=== PATIENT | female | born 1965 | race Caucasian/White ===

== ENCOUNTER 2022-06-20 12:17 | Emergency (ER) | payer BC, OTHER ==
[2022-06-20 12:33] VITALS: BP 164/90; PULSE 76; RESP 18; TEMP 97.7
[2022-06-20] MEDS ORDERED: ORPHENADRINE 30 MG/ML 2 ML VIAL IM STA (12:46)
[2022-06-20] MEDS ORDERED: KETOROLAC 15 MG/ML 1 ML VIAL IM STA (12:46)
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
== END 2022-06-20 13:52 | disposition home or self-care (01) ==
LOC: EC 12:17
DX: S39.012A Strain of muscle, fascia and tendon of lower back, initial encounter (principal); S63.91XA Sprain of unspecified part of right wrist and hand, initial encounter; V89.2XXA Person injured in unspecified motor-vehicle accident, traffic, initial encounter
CPT/HCPCS: 73110; 73130; 99284; 96372; J2360

== ENCOUNTER → 2022-06-28 | Outpatient (CLI) | payer BC ==
--- NOTE | 2022-06-28 19:11 | MR ---
EXAMINATION TYPE: MR cervical spine wo con DATE OF EXAM: 06/28/2022 COMPARISON: None HISTORY: Loss of feeling in both arms (mostly right), feels like pins and needles for 6 months TECHNIQUE: Multiplanar, multisequence images of the cervical spine were acquired without contrast. C2-C3: No evidence for degenerative disc disease. No disc bulge/herniation or protrusion. Mild left- sided foraminal encroachment due to uncovertebral joint hypertrophy and facet arthropathy. C3-C4: No evidence for degenerative disc disease. No disc bulge/herniation or protrusion. Uncoverteb ral joint hypertrophy causes some mild bilateral foraminal encroachment. C4-C5: No evidence for degenerative disc disease. No disc bulge/herniation or protrusion. Uncoverteb ral joint hypertrophy and facet arthropathy result in some right-sided foraminal encroachment C5-C6: Posterior extension endplate disc complex causes mild anterior mass effect on the thecal sac. There is bilateral foraminal encroachment due to uncovertebral joint hypertrophy. C6-C7: Posterior broad-based disc bulge causes mild anterior mass effect on the thecal sac. There is some left-sided foraminal encroachment due to uncovertebral joint hypertrophy. C7-T1: No evidence for degenerative disc disease. No disc bulge/herniation or protrusion. No Canal stenosis. Foramina are patent bilaterally. Cervical segments are intact. There is normal alignment. Cervical spinal cord is of normal signal. Craniovertebral junction relationships are within normal limits. Cervical vertebral bodies show pre served height, bone marrow signal. Some minimal endplate discogenic marrow signal change present at C 5-6, there is associated loss of disc height and signal at C5-6 and C6-7 consistent with disc desicca tion and degenerative disc disease. No significant spinal stenosis. There may be a thoracic scoliosis . IMPRESSION: Degenerative disc disease, multilevel foraminal encroachment, suspect a spinal curvature.
== END | disposition home or self-care (01) ==
LOC: RADMRIMAIN 11:37 → EDUNIT# 11:45
PROVIDERS: ATTEND Orthopaedic Surgery Orthopaedic Surgery of the Spine
DX: M50.323 Other cervical disc degeneration at C6-C7 level (principal)
CPT/HCPCS: 72141

== ENCOUNTER → 2022-11-08 | Outpatient (CLI) | payer BC ==
--- NOTE | 2022-11-09 11:43 | MM ---
Reason for Exam: Screening (asymptomatic). Last mammogram was performed 1 year(s) and 3 month(s) ago. Patient History: Menarche at age 11. First Full-Term at age 32. Late child-bearing (after 30). Postmenopausal. Patient has history of breast feeding. Patient used Hormonal Contraceptives for 10 years. Risk Values: [place] 5 year model risk: 1.9%. NCI Lifetime model risk: 11.7%. Prior Study Comparison: 12/30/2019 Bilateral MG 3D screening mammo w/cad, [facility]. 07/28/2021 Bilateral MG 3D screening mammo w/cad, [facility]. Tissue Density: There are scattered fibroglandular densities. Findings: Analyzed By CAD. There are loosely grouped tiny benign-appearing round calcifications anteriorly in the left breast redemonstrated. There is no suspicious group of microcalcifications or new suspicious mass in either breast. Overall Assessment: Benign, BI-RAD 2 Management: Screening Mammogram of both breasts in 1 year. A clinical breast exam by your physician is recommended on an annual basis and results should be correlated with mammographic findings. Electronically signed and approved by: Con Putnam M.D.
== END | disposition home or self-care (01) ==
LOC: RADMAMWWP 08:36
PROVIDERS: ATTEND Family Medicine
DX: Z12.31 Encounter for screening mammogram for malignant neoplasm of breast (principal); Z78.0 Asymptomatic menopausal state
CPT/HCPCS: 77063; 77067

== ENCOUNTER → 2023-11-29 | Outpatient (CLI) | payer BC ==
--- NOTE | 2023-11-30 13:34 | MM ---
Reason for Exam: Screening (asymptomatic). Last mammogram was performed 1 year(s) and 1 month(s) ago. Patient History: Menarche at age 11. First Full-Term at age 32. Late child-bearing (after 30). Postmenopausal. Patient has history of breast feeding. Patient used Hormonal Contraceptives for 10 years. Risk Values: [place] 5 year model risk: 2.0%. NCI Lifetime model risk: 11.4%. Prior Study Comparison: 12/30/2019 Bilateral MG 3D screening mammo w/cad, [facility]. 07/28/2021 Bilateral MG 3D screening mammo w/cad, [facility]. 11/08/2022 Bilateral MG 3D screening mammo w/cad, [facility]. Tissue Density: There are scattered fibroglandular densities. Findings: Analyzed By CAD. There is no suspicious group of microcalcifications or new suspicious mass. Overall Assessment: Negative, BI-RAD 1 Management: Screening Mammogram of both breasts in [address] [facility] will attempt to contact patient to return for supplemental views and ultrasound if indicated. Patient should continue monthly self-breast exams. A clinical breast exam by your physician is recommended on an annual basis. This exam should not preclude additional follow-up of suspicious palpable abnormalities. Note on Georgiana scores and lifetime risk: 1. A Georgiana score greater than 3% is considered moderate risk. If this is the case, consider specialist referral to assess eligibility for a risk reducing agent. 2. If overall lifetime risk for the development of breast cancer is 20% or higher, the patient may qualify for future screening with alternating mammogram and breast MRI. Electronically signed and approved by: Dereck Farmer DO
== END | disposition home or self-care (01) ==
LOC: RADMAMWWP 08:07
PROVIDERS: ATTEND Family Medicine
DX: Z12.31 Encounter for screening mammogram for malignant neoplasm of breast (principal); Z78.0 Asymptomatic menopausal state
CPT/HCPCS: 77067

== ENCOUNTER → 2024-12-02 | Outpatient (CLI) | payer BC ==
--- NOTE | 2024-12-03 14:38 | MM ---
Reason for Exam: Screening (asymptomatic). Last screening mammogram was performed 12 month(s) ago. Patient History: Menarche at age 11. First Full-Term at age 32. Late child-bearing (after 30). Postmenopausal. Patient has history of breast feeding. Patient used Hormonal Contraceptives for 10 years. 05/11/2024, Bilateral Reduction. Risk Values: [place] 5 year model risk: 2.1%. NCI Lifetime model risk: 11.2%. Prior Study Comparison: 07/28/2021 Bilateral MG 3D screening mammo w/cad, [facility]. 11/08/2022 Bilateral MG 3D screening mammo w/cad, [facility]. 11/29/2023 Bilateral MG screening mammo w CAD, [facility]. Tissue Density: The breasts are heterogeneously dense, which may obscure small masses. Findings: Analyzed By CAD. Right breast: There is no suspicious group of microcalcifications or new suspicious mass. Left breast: There is no suspicious group of microcalcifications or new suspicious mass. Overall Assessment: Negative, BI-RAD 1 Management: Screening Mammogram of both breasts in [address] [facility] will attempt to contact patient to return for supplemental views and ultrasound if indicated. Patient should continue monthly self-breast exams. A clinical breast exam by your physician is recommended on an annual basis. This exam should not preclude additional follow-up of suspicious palpable abnormalities. Note on Georgiana scores and lifetime risk: 1. A Georgiana score greater than 3% is considered moderate risk. If this is the case, consider specialist referral to assess eligibility for a risk reducing agent. 2. If overall lifetime risk for the development of breast cancer is 20% or higher, the patient may qualify for future screening with alternating mammogram and breast MRI. [facility], , 12/02/2024 9:40 AM. Electronically signed and approved by: Dereck Farmer DO
== END | disposition home or self-care (01) ==
LOC: RADMAMWWP 08:41
PROVIDERS: ATTEND Family Medicine
DX: Z12.31 Encounter for screening mammogram for malignant neoplasm of breast (principal); Z78.0 Asymptomatic menopausal state; R92.333 Mammographic heterogeneous density, bilateral breasts
CPT/HCPCS: 77063; 77067

== ENCOUNTER 2025-04-07 11:24 | Emergency (ER) | payer BC ==
--- NOTE | 2025-04-07 11:53 | ED ---
Abdominal Pain HPI - General Chief Complaint: Abdominal Pain Stated Complaint: Abdominal pain Time Seen by Provider: 04/07/25 11:35 Source: patient, RN notes reviewed Mode of arrival: ambulatory Limitations: no limitations - History of Present Illness Initial Comments: This is a 60-year-old female who presents to the emergency department for abdominal pain and chest pain. States that a couple of days ago she developed pressure in her upper abdomen that radiated into her chest and back with associated nausea and vomiting. It then resolved and she felt better the following day. However, this morning she again felt that pressure sensation in her upper abdomen radiating into her chest and back. She does not feel short of breath. Denies any history of similar symptoms in the past. MD Complaint: abdominal pain - Related Data Previous Rx's Medication Instructions Recorded Cyclobenzaprine [Flexeril] 5 mg PO TID PRN #12 tablet 06/20/22 Allergies Allergy/AdvReac Type Severity Reaction Status Date / Time No Known Allergies Allergy Verified 04/07/25 11:29 Review of Systems ROS Statement: Those systems with pertinent positive or pertinent negative responses have been documented in the HPI. ROS Other: All systems not noted in ROS Statement are negative. Past Medical History Past Medical History: Thyroid Disorder History of Any Multi-Drug Resistant Organisms: None Reported Past Surgical History: Tonsillectomy Past Psychological History: No Psychological Hx Reported Smoking Status: Never smoker Past Alcohol Use History: Occasional Past Drug Use History: None Reported General Exam Limitations: no limitations General appearance: alert, in no apparent distress Head exam: Present: atraumatic, normocephalic, normal inspection Respiratory exam: Present: normal lung sounds bilaterally. Absent: respiratory distress, wheezes, rales, rhonchi, stridor Cardiovascular Exam: Present: regular rate, normal rhythm GI/Abdominal exam: Present: soft, tenderness (Epigastric). Absent: distended Neurological exam: Present: alert, oriented X3, CN II-XII intact Psychiatric exam: Present: normal affect, normal mood Skin exam: Present: warm, dry, intact, normal color. Absent: rash Course Vital Signs 04/07/25 04/07/25 11:25 15:26 Temperature 97.8 F 97.3 F L Pulse Rate 67 71 Respiratory 18 19 Rate Blood Pressure 176/91 162/79 O2 Sat by Pulse 98 99 Oximetry Medical Decision Making - Medical Decision Making This is a 60-year-old female who presents to the emergency department for abdominal pain. Was pt. sent in by a medical professional or institution? @ -No Did you speak to anyone other than the patient for history? @ -No Did you review nursing and triage notes? @ -I disagree with the aspect about chest tightness and shortness of breath. Patient reports pressure in her abdomen with some radiation into the chest and she denies any shortness of breath. States that the pressure causes some discomfort with breathing. Were old charts reviewed? @ -No Differential Diagnosis? @ -Differential Abdominal Pain Women: Appendicitis, Cholecystitis, diverticulosis, ischemic bowel, pancreatitis, hepatitis, UTI, gastroenteritis, AAA, incarcerated hernia, bowel obstruction, constipation, inflammatory bowel, hepatitis, peptic ulcer disease, splenic infarction, perforated viscus, vulvitis, ovarian torsion, PID, kidney stone, placenta abruption, this is not meant to be an all-inclusive list EKG interpreted by me (3pts min.)? @ -EKG interpreted by me demonstrating the following: Sinus rhythm. Ventricular rate 60 bpm, NH interval 140 ms, QRS duration 88 ms, QTc 404 ms. X-rays interpreted by me (1pt min.)? @ -Chest x-ray obtained, my interpretation identifies no localized consolidations or infiltrates. CT interpreted by me (1pt min.)? @ -Not obtained U/S interpreted by me (1pt. min.)? @ -Gallbladder ultrasound obtained. My interpretation identifies cholelithiasis What testing was considered but not performed? (CT, X-rays, U/S, labs)? Why? @ -None What meds were considered but not given? Why? @ -None Did you discuss the management of the patient with other professionals? @ -No Did you reconcile home meds? @ -No Was smoking cessation discussed for >3mins.? @ -No Was critical care preformed (if so, how long)? @ -No Were there social determinants of health that impacted care today? How? (Homelessness, low income, unemployed, alcoholism, drug addiction, transportation, low edu. Level, literacy, decrease access to med. care, skilled nursing, rehab)? @ -No Was there de-escalation of care discussed even if they declined? (Discuss DNR or withdrawal of care, Hospice)? @ -No What co-morbidities impacted this encounter? (DM, HTN, Smoking, COPD, CAD, Cancer, CVA, Hep., AIDS, mental health diagnosis, sleep apnea, morbid obesity)? @ -None Was patient admitted / discharged? @ -Lab work demonstrates elevated LFTs with a bilirubin of 1.5, AST of 410, and ALT of 225. Lipase elevated at 1529. Chest x-ray reveals no acute process. Gallbladder ultrasound demonstrates cholelithiasis without other acute findings. CBD within normal limits. There is no sign of associated acute cholecystitis. She was initially treated with a GI cocktail prior to laboratory studies returning, and she advised that her symptoms had essentially resolved. Presentation is consistent with gallstone pancreatitis. However, we do not have gastroenterology available and given the elevated LFTs, advised that she would need to be transferred to an alternative facility with GI available. Patient advised that she was currently asymptomatic and wanted to leave. Patient subsequently signed out AGAINST MEDICAL ADVICE with strict return parameters. Advised she follow a bland and low-fat diet for the meantime to reduce the risk of symptom recurrence. She was also given information for follow-up with GI and general surgery. Case discussed with ED attending Dr. Estrada. Undiagnosed new problem with uncertain prognosis? @ -None Drug Therapy requiring intensive monitoring for toxicity (Heparin, Nitro, Insulin, Cardizem)? @ -None Were any procedures done? @ -None Diagnosis/symptom? @ -Gallstone pancreatitis Acute, or Chronic, or Acute on Chronic? @ -Acute Uncomplicated (without systemic symptoms) or Complicated (systemic symptoms)? @ -Uncomplicated Side effects of treatment? @ -None Exacerbation, Progression, or Severe Exacerbation] @ -Not applicable Poses a threat to life or bodily function? @ -This will depend on how she progresses - Lab Data Result diagrams: 04/07/25 11:46 04/07/25 11:46 Lab Results 04/07/25 04/07/25 04/07/25 Range/Units 11:46 11:46 11:46 WBC 9.45 (4.50-10.00) 10*3/uL RBC 5.01 (4.10-5.20) 10*6/uL Hgb 14.9 (12.0-15.0) g/dL Hct 41.5 (37.2-46.3) % MCV 82.8 (80.0-97.0) fL MCH 29.7 (27.0-32.0) pg MCHC 35.9 (32.0-37.0) g/dL Plt Count 173 (140-440) 10*3/uL MPV 8.9 L (9.5-12.2) fL Immature Gran % (Auto) 0.2 % Neutrophils % 74.9 % Lymphocytes % 17.1 % Monocytes % 6.6 % Eosinophils % 0.7 % Basophils % 0.5 % Immature Gran # 0.02 (0.00-0.04) 10*3/uL Neutrophils # 7.07 (1.80-7.70) 10*3/uL Lymphocytes # 1.62 (0.90-5.00) 10*3/uL Monocytes # 0.62 (0.20-1.00) 10*3/uL Eosinophils # 0.07 (0.04-0.35) 10*3/uL Basophils # 0.05 (0.00-0.10) 10*3/uL Sodium 143 (137-145) mmol/L Potassium 4.3 (3.5-5.1) mmol/L Chloride 106 (98-107) mmol/L Carbon Dioxide 28 (22-30) mmol/L Anion Gap 9 mmol/L BUN 19 H (7-17) mg/dL Creatinine 0.73 (0.52-1.04) mg/dL Est GFR (CKD-EPI)AfAm >90 (>60 ml/min/1.73 sqM) Est GFR (CKD-EPI)NonAf >90 (>60 ml/min/1.73 sqM) Glucose 109 H (74-99) mg/dL Calcium 10.0 (8.4-10.2) mg/dL Total Bilirubin 1.5 H (0.2-1.3) mg/dL AST 410 H (14-36) U/L ALT 225 H (4-34) U/L Alkaline Phosphatase 58 (38-126) U/L Troponin I <0.012 (0.000-0.034) ng/mL Total Protein 7.9 (6.3-8.2) g/dL Albumin 4.5 (3.5-5.0) g/dL Amylase 101 (30-110) U/L Lipase 1529 H (23-300) U/L - Radiology Data Radiology results: report reviewed, image reviewed Disposition Clinical Impression: Gallstone pancreatitis Disposition: LEFT AGAINST MEDICAL ADVICE Instructions (If sedation given, give patient instructions): Pancreatitis (ED), Biliary Colic (ED) Additional Instructions: There is a chance that your pain could return. If that is the case you need to return to the emergency department here or somewhere else. Try to follow a bland and low-fat diet for the meantime to reduce the risk of your symptoms recurring. You will need to follow-up with general surgery and gastroen terology. You can follow-up with the providers listed below and contact them for a follow-up appointment or reach out to your primary care provider for a referral. Is patient prescribed a controlled substance at d/c from ED?: No Referrals: Kacie Mancuso DO [Primary Care Provider] - 1-2 days Juventino Mayes MD [STAFF PHYSICIAN] - 1-2 days Mildred Sun DO [Doctor of Osteopathic Medicine] - 1-2 days Veena Munoz MD [STAFF PHYSICIAN] - 1-2 days Time of Disposition: 14:50
[2025-04-07] MEDS: SODIUM CHLORIDE 0.9% 1,000 ML IV ONE (12:35)
[2025-04-07] MEDS: MAG HYDROX/AL HYDROX/SIMETH 30 ML CUP PO STA (12:35)
[2025-04-07] MEDS: HYOSCYAMINE ELIXIR 250 MCG/10 ML BTL PO STA (12:36)
[2025-04-07 12:53] LABS: Basophils # (A) 0.05 10*3/uL (0.00-0.10); Basophils % (A) 0.5 %; Eosinophils # (A) 0.07 10*3/uL (0.04-0.35); Eosinophils % (A) 0.7 %; HCT 41.5 % (37.2-46.3); HGB 14.9 g/dL (12.0-15.0); Lymphocytes # (A) 1.62 10*3/uL (0.90-5.00); Lymphocytes % (A) 17.1 %; MCH 29.7 pg (27.0-32.0); MCHC 35.9 g/dL (32.0-37.0); MCV 82.8 fL (80.0-97.0); Mean Platelet Volume 8.9 fL (9.5-12.2); Monocytes # (A) 0.62 10*3/uL (0.20-1.00); Monocytes % (A) 6.6 %; Neutrophils # (A) 7.07 10*3/uL (1.80-7.70); Neutrophils % (A) 74.9 %; Platelet Count 173 10*3/uL (140-440); RBC 5.01 10*6/uL (4.10-5.20); RDW 12.9 % (11.5-14.5); WBC 9.45 10*3/uL (4.50-10.00)
[2025-04-07 13:09] LABS: ALT 225 U/L (4-34); AST 410 U/L (14-36); African American GFR (CKD) >90 (>60 ml/min/1.73 sqM); Albumin 4.5 g/dL (3.5-5.0); Alkaline Phosphatase 58 U/L (38-126); Amylase 101 U/L (30-110); Anion Gap 9 mmol/L; Blood Urea Nitrogen 19 mg/dL (7-17); Carbon Dioxide 28 mmol/L (22-30); Chloride 106 mmol/L (98-107); Glucose 109 mg/dL (74-99); Lipase 1529 U/L (23-300); Non-African American GFR(CKD) >90 (>60 ml/min/1.73 sqM); Potassium 4.3 mmol/L (3.5-5.1); Sodium 143 mmol/L (137-145); Total Bilirubin 1.5 mg/dL (0.2-1.3); Total Protein 7.9 g/dL (6.3-8.2)
--- NOTE | 2025-04-07 13:21 | XR ---
EXAMINATION TYPE: XR chest 2V DATE OF EXAM: 04/07/2025 1:06 PM COMPARISON: Chest radiographs from 04/07/2025 CLINICAL INDICATION: Female, 60 years old with history of Chest pain; TECHNIQUE: XR chest 2V Frontal and lateral views of the chest. FINDINGS: Lungs/Pleura: There is no evidence of pleural effusion, focal consolidation, or pneumothorax. Pulmonary vascularity: Unremarkable. Heart/mediastinum: Cardiomediastinal silhouette is unremarkable. Musculoskeletal: No acute osseous pathology. IMPRESSION: No acute cardiopulmonary disease/process. [facility], , 04/07/2025 1:18 PM
--- NOTE | 2025-04-07 14:17 | US ---
EXAMINATION TYPE: US gallbladder DATE OF EXAM: 04/07/2025 COMPARISON: NONE CLINICAL INDICATION: Female, 60 years old with history of Epigastric pain, pancreatitis; Pain. Abnor mal labs. TECHNIQUE: Grayscale and color Doppler imaging of the right upper quadrant was performed. FINDINGS: EXAM MEASUREMENTS: Liver Length: 18.2 cm Gallbladder Wall: 0.2 cm CBD: 0.5 cm Right Kidney: 10.4 x 4.7 x 3.9 cm Pancreas: Tail obscured by overlying bowel gas, echogenic in appearance. Heterogenous. Liver: Enlarged in size. Heterogenous. No suspicious observations. Gallbladder: Multiple mobile echogenic foci. No wall thickening. Evidence for sonographic Tran's sign: neg CBD: wnl Right Kidney: No hydronephrosis or masses seen IMPRESSION: 1. No evidence for acute process. 2. Hepatic steatosis. 3. Cholelithiasis. [facility], , 04/07/2025 2:14 PM
[2025-04-07] MEDS: ONDANSETRON 4 MG ODT STARTER PACK 2 TAB BTL PO STA (15:21)
[2025-04-07] MEDS: ACET/COD 300 MG/30 MG STARTER PACK 6 TAB BTL PO STA (15:21)
[2025-04-07 15:28] VITALS: BP 162/79; PULSE 71; RESP 19; TEMP 97.3
== END 2025-04-07 15:29 | disposition home or self-care (01) ==
LOC: EC 11:24
DX: K85.10 Biliary acute pancreatitis without necrosis or infection (principal)
CPT/HCPCS: 36415; 93005; 80053; 82150; 83690; 84484; 85025; 71046; 76705; 99285; 96360; S0119